=== PATIENT | male | born 1985 | race Caucasian/White ===

== ENCOUNTER 2016-06-22 03:23 | Emergency (ER) | payer BC, SELFPAY ==
[2016-06-22] MEDS ORDERED: LIDOCAINE W/EPINEPHRINE 1% 20ML VIAL As Ordered ONE (03:49)
--- NOTE | 2016-06-22 04:24 | EDDOCDS ---
Physician Documentation [facility] Name: Mukund Michelle Age: 30 yrs Sex: Male : 1985 Arrival Date: 06/22/2016 Time: 03:23 Bed 9 Private MD: Disposition: 06/22/16 04:09 Discharged to Home/Self Care. Impression: Dental caries on smooth surface. - Condition is Stable. - Prescriptions for Clindamycin HCl 150 mg Oral Capsule - take 1 capsule by ORAL route 4 times per day for 10 days; 40 capsule. - Medication Reconciliation, Local Pharmacy Hours, Work Release Form - 1 day form. - Follow up: Private Physician; When: Call to arrange an appointment; Reason: Recheck today's complaints. - Problem is an ongoing problem. - Symptoms have improved. Historical: - Allergies: No known drug Allergies; - Home Meds: 1. none - PMHx: none; - PSHx: none; - Social history: Smoking status: Patient uses tobacco products, light tobacco smoker. No barriers to communication noted, The patient speaks fluent Wolof, Speaks appropriately for age. - Family history: Not pertinent. - : The pt / caregiver states he / she is not on anticoagulants. Home medication list is obtained from the patient. - Exposure Risk Screening:: None identified. Vital Signs: 06/22 03:30 BP 173 / 98; Pulse 92; Resp 18; Temp 98.2; Pulse Ox 98% on R/A; Weight 86.18 kg / nn1 189.99 lbs; Height 6 ft. 1 in. (185.42 cm); Pain 7/10; 03:30 Body Mass Index 25.07 (86.18 kg, 185.42 cm) nn1 Procedures: 04:08 Dental block: Location: periapical block, Medication: Lidocaine 1% with epinephrine, cs11 Effect: the patient has resolution of the pain, the patient tolerated the procedure well. MDM: 04:05 Financial registration complete. [facility] Signatures: Josr Steiner DO DO cs11 Dedra De León [facility] Georgiana FergusonRN RN nn1 Marleen Aleman RN RN kas2 MTDD
--- NOTE | 2016-06-22 04:24 | EDDOCDS ---
Nurse's Notes [facility] Name: Mukund Michelle Age: 30 yrs Sex: Male : 1985 Arrival Date: 06/22/2016 Time: 03:23 Bed 9 Private MD: Diagnosis: Dental caries on smooth surface Presentation: 06/22 03:28 Presenting complaint: Patient states: believes he has infection in left side of mouth. nn1 Pain started a couple of days ago. Adult Sepsis Screening: The patient does not have new or worsening altered mentation. Patient's respiratory rate is less than 22. Systolic blood pressure is greater than 100. Patient has a qSOFA score of 0- Negative Sepsis Screen. Suicide/Homicide risk assessment- the patient denies having any suicidal and/or homicidal ideations and does not present with any other emotional, behavioral or mental health complaints. Status: Patient is not a tax services manager or dependent. Transition of care: patient was not received from another setting of care. 03:28 Acuity: CACHORRO Level 4 nn1 03:28 Method Of Arrival: Walkin/Carried/Asstd nn1 Triage Assessment: 03:31 General: Appears in no apparent distress. Pain: Location: mouth Pain currently is 7 out nn1 of 10 on a pain scale. HIV screening NA for this visit Offered previously. The patient is triaged at the bedside. See Assessment in Nurses Notes section of ED record. Neurological: Level of Consciousness is awake, alert, obeys commands, Oriented to person, place, time. EENT: Respiratory: Airway is patent Respiratory effort is even, unlabored, Respiratory pattern is regular, symmetrical. 03:38 EENT: Poor dentition noted. nn1 Historical: - Allergies: No known drug Allergies; - Home Meds: 1. none - PMHx: none; - PSHx: none; - Social history: Smoking status: Patient uses tobacco products, light tobacco smoker. No barriers to communication noted, The patient speaks fluent Lao, Speaks appropriately for age. - Family history: Not pertinent. - : The pt / caregiver states he / she is not on anticoagulants. Home medication list is obtained from the patient. - Exposure Risk Screening:: None identified. Screenin:49 Screening information is obtained from the patient. Fall risk: No risks identified. kas2 Assistance ADL's: requires no assistance with activities of daily living. Abuse/DV Screen: The patient / caregiver reports he/she is: not in a situation that causes fear, pain or injury. Nutritional screening: No deficits noted. Advance Directives: Currently, there is no health care proxy. There is no active DNR order. There is no living will. There is no Power of Sewing Machine Attachment Tester. home support is adequate. Assessment: 03:47 General: Appears in no apparent distress, uncomfortable, unkempt, Behavior is kas2 appropriate for age, cooperative. Pain: Location: mouth Pain currently is 10 out of 10 on a pain scale. Neurological: Level of Consciousness is awake, alert, Oriented to person, place, time. Cardiovascular: Capillary refill < 3 seconds Heart tones present Rhythm is regular. Respiratory: No deficits noted. Airway is patent Respiratory effort is even, unlabored, Respiratory pattern is regular, symmetrical, Breath sounds are clear bilaterally. Derm: Skin is intact, is healthy with good turgor, Skin is dry, Skin is pink, warm & dry. Skin temperature is warm. 04:09 General:. kas2 Vital Signs: 03:30 BP 173 / 98; Pulse 92; Resp 18; Temp 98.2; Pulse Ox 98% on R/A; Weight 86.18 kg; Height nn1 6 ft. 1 in. (185.42 cm); Pain 7/10; 03:30 Body Mass Index 25.07 (86.18 kg, 185.42 cm) nn1 Vitals: 03:23 Log In Time: June 22, 2016 at 03:23. nn1 ED Course: 03:24 Patient visited by Rachel Abdi. gjb 03:24 Patient moved to Waiting gjb 03:27 Patient moved to Triage 1 nn1 03:28 Triage Initiated nn1 03:32 Marleen Aleman RN is Primary Nurse. nn1 03:32 Patient moved to 9 nn1 03:36 Patient visited by Marleen Aleman RN. kas2 03:46 Josr Steiner DO is Attending Physician. cs11 03:46 Patient visited by Josr Steiner DO. cs11 03:50 Patient visited by Marleen Aleman RN. kas2 04:12 Patient visited by Marleen Aleman RN. kas2 04:24 The patient / caregiver is instructed regarding the plan of care and ED course. kas2 04:24 No IV's were initiated during this patient's visit. No procedures done that require kas2 assistance. Order Results: There are currently no results for this order. Outcome: 04:09 Discharge ordered by Provider. cs11 04:23 Discharge Assessment: patient administered narcotics - no. The following High Risk kas2 Discharge criteria are identified: None. Discharged to home ambulatory. Condition: good Condition: stable Condition: improved. No special radiology studies were completed. Property :Personal belongings accompany Pt. 04:24 Patient left the ED. kas2 Signatures: Josr Steiner DO DO cs11 Georgiana Ferguson,RN RN nn1 Rachel Abdi KimRN RN kas2 MTDD
--- NOTE | 2016-06-24 05:24 | EDDOCDS ---
Physician Documentation [facility] Name: Mukund Michelle Age: 30 yrs Sex: Male : 1985 Arrival Date: 06/22/2016 Time: 03:23 Bed 9 Private MD: Disposition: 06/22/16 04:09 Discharged to Home/Self Care. Impression: Dental caries on smooth surface. - Condition is Stable. - Prescriptions for Clindamycin HCl 150 mg Oral Capsule - take 1 capsule by ORAL route 4 times per day for 10 days; 40 capsule. - Medication Reconciliation, Local Pharmacy Hours, Work Release Form - 1 day form. - Follow up: Private Physician; When: Call to arrange an appointment; Reason: Recheck today's complaints. - Problem is an ongoing problem. - Symptoms have improved. Historical: - Allergies: No known drug Allergies; - Home Meds: 1. none - PMHx: none; - PSHx: none; - Social history: Smoking status: Patient uses tobacco products, light tobacco smoker. No barriers to communication noted, The patient speaks fluent French, Speaks appropriately for age. - Family history: Not pertinent. - : The pt / caregiver states he / she is not on anticoagulants. Home medication list is obtained from the patient. - Exposure Risk Screening:: None identified. Vital Signs: 06/22 03:30 BP 173 / 98; Pulse 92; Resp 18; Temp 98.2; Pulse Ox 98% on R/A; Weight 86.18 kg / nn1 189.99 lbs; Height 6 ft. 1 in. (185.42 cm); Pain 7/10; 03:30 Body Mass Index 25.07 (86.18 kg, 185.42 cm) nn1 Procedures: 04:08 Dental block: Location: periapical block, Medication: Lidocaine 1% with epinephrine, cs11 Effect: the patient has resolution of the pain, the patient tolerated the procedure well. MDM: 04:05 Financial registration complete. [facility] 04:29 [facility] Payment Agreement was scanned into garbs and attached to record. [facility] 06/23 09:56 T-Sheet-- Draft Copy was scanned into garbs and attached to record. gb Signatures: Margaret Villatoro, Raad Reg Josr Otero DO DO cs11 Dedra De León Georgiana Wong RN RN nn1 Marleen AlemanRN RN kas2 The chart was reviewed and I authenticate all verbal orders and agree with the evaluation and treatment provided.Attachments: 06/22 04:29 [facility] Payment Agreement [facility] 06/23 09:56 T-Sheet-- Draft Copy gb Chart Complete MTDD
--- NOTE | 2016-06-24 05:24 | EDDOCDS ---
Nurse's Notes [facility] Name: Mukund Michelle Age: 30 yrs Sex: Male : 1985 Arrival Date: 06/22/2016 Time: 03:23 Bed 9 Private MD: Diagnosis: Dental caries on smooth surface Presentation: 06/22 03:28 Presenting complaint: Patient states: believes he has infection in left side of mouth. nn1 Pain started a couple of days ago. Adult Sepsis Screening: The patient does not have new or worsening altered mentation. Patient's respiratory rate is less than 22. Systolic blood pressure is greater than 100. Patient has a qSOFA score of 0- Negative Sepsis Screen. Suicide/Homicide risk assessment- the patient denies having any suicidal and/or homicidal ideations and does not present with any other emotional, behavioral or mental health complaints. Status: Patient is not a food service lead or dependent. Transition of care: patient was not received from another setting of care. 03:28 Acuity: CACHORRO Level 4 nn1 03:28 Method Of Arrival: Walkin/Carried/Asstd nn1 Triage Assessment: 03:31 General: Appears in no apparent distress. Pain: Location: mouth Pain currently is 7 out nn1 of 10 on a pain scale. HIV screening NA for this visit Offered previously. The patient is triaged at the bedside. See Assessment in Nurses Notes section of ED record. Neurological: Level of Consciousness is awake, alert, obeys commands, Oriented to person, place, time. EENT: Respiratory: Airway is patent Respiratory effort is even, unlabored, Respiratory pattern is regular, symmetrical. 03:38 EENT: Poor dentition noted. nn1 Historical: - Allergies: No known drug Allergies; - Home Meds: 1. none - PMHx: none; - PSHx: none; - Social history: Smoking status: Patient uses tobacco products, light tobacco smoker. No barriers to communication noted, The patient speaks fluent Amharic, Speaks appropriately for age. - Family history: Not pertinent. - : The pt / caregiver states he / she is not on anticoagulants. Home medication list is obtained from the patient. - Exposure Risk Screening:: None identified. Screenin:49 Screening information is obtained from the patient. Fall risk: No risks identified. kas2 Assistance ADL's: requires no assistance with activities of daily living. Abuse/DV Screen: The patient / caregiver reports he/she is: not in a situation that causes fear, pain or injury. Nutritional screening: No deficits noted. Advance Directives: Currently, there is no health care proxy. There is no active DNR order. There is no living will. There is no Power of Nuclear Fuels Research Engineer. home support is adequate. Assessment: 03:47 General: Appears in no apparent distress, uncomfortable, unkempt, Behavior is kas2 appropriate for age, cooperative. Pain: Location: mouth Pain currently is 10 out of 10 on a pain scale. Neurological: Level of Consciousness is awake, alert, Oriented to person, place, time. Cardiovascular: Capillary refill < 3 seconds Heart tones present Rhythm is regular. Respiratory: No deficits noted. Airway is patent Respiratory effort is even, unlabored, Respiratory pattern is regular, symmetrical, Breath sounds are clear bilaterally. Derm: Skin is intact, is healthy with good turgor, Skin is dry, Skin is pink, warm & dry. Skin temperature is warm. 04:09 General:. kas2 Vital Signs: 03:30 BP 173 / 98; Pulse 92; Resp 18; Temp 98.2; Pulse Ox 98% on R/A; Weight 86.18 kg; Height nn1 6 ft. 1 in. (185.42 cm); Pain 7/10; 03:30 Body Mass Index 25.07 (86.18 kg, 185.42 cm) nn1 Vitals: 03:23 Log In Time: June 22, 2016 at 03:23. nn1 ED Course: 03:24 Patient visited by Rachel Abdi. gjb 03:24 Patient moved to Waiting gjb 03:27 Patient moved to Triage 1 nn1 03:28 Triage Initiated nn1 03:32 Marleen Aleman RN is Primary Nurse. nn1 03:32 Patient moved to 9 nn1 03:36 Patient visited by Marleen Aleman RN. kas2 03:46 Josr Steiner DO is Attending Physician. cs11 03:46 Patient visited by Josr Steiner DO. cs11 03:50 Patient visited by Marleen Aleman RN. kas2 04:12 Patient visited by Marleen Aleman RN. kas2 04:24 The patient / caregiver is instructed regarding the plan of care and ED course. kas2 04:24 No IV's were initiated during this patient's visit. No procedures done that require kas2 assistance. 04:29 [facility] Payment Agreement was scanned into [employer] and attached to record. [facility] 06/23 09:56 T-Sheet-- Draft Copy was scanned into [employer] and attached to record. Order Results: There are currently no results for this order. Outcome: 06/22 04:09 Discharge ordered by Provider. 11 04:23 Discharge Assessment: patient administered narcotics - no. The following High Risk kas2 Discharge criteria are identified: None. Discharged to home ambulatory. Condition: good Condition: stable Condition: improved. No special radiology studies were completed. Property :Personal belongings accompany Pt. 04:24 Patient left the ED. [facility] Signatures: Margaret Villatoro, Reg Reg Josr Otero, DO cs11 Dedra De León [facility] Georgiana Ferguson,RN RN nn1 Rachel Abdi KimRN RN kas2 Chart Complete NAHOMI
--- NOTE | 2016-06-24 05:24 | EDDOCDS ---
Physician Documentation [facility] Name: Mukund Michelle Age: 30 yrs Sex: Male : 1985 Arrival Date: 06/22/2016 Time: 03:23 Bed 9 Private MD: Disposition: 06/22/16 04:09 Discharged to Home/Self Care. Impression: Dental caries on smooth surface. - Condition is Stable. - Prescriptions for Clindamycin HCl 150 mg Oral Capsule - take 1 capsule by ORAL route 4 times per day for 10 days; 40 capsule. - Medication Reconciliation, Local Pharmacy Hours, Work Release Form - 1 day form. - Follow up: Private Physician; When: Call to arrange an appointment; Reason: Recheck today's complaints. - Problem is an ongoing problem. - Symptoms have improved. Historical: - Allergies: No known drug Allergies; - Home Meds: 1. none - PMHx: none; - PSHx: none; - Social history: Smoking status: Patient uses tobacco products, light tobacco smoker. No barriers to communication noted, The patient speaks fluent Polish, Speaks appropriately for age. - Family history: Not pertinent. - : The pt / caregiver states he / she is not on anticoagulants. Home medication list is obtained from the patient. - Exposure Risk Screening:: None identified. Vital Signs: 06/22 03:30 BP 173 / 98; Pulse 92; Resp 18; Temp 98.2; Pulse Ox 98% on R/A; Weight 86.18 kg / nn1 189.99 lbs; Height 6 ft. 1 in. (185.42 cm); Pain 7/10; 03:30 Body Mass Index 25.07 (86.18 kg, 185.42 cm) nn1 Procedures: 04:08 Dental block: Location: periapical block, Medication: Lidocaine 1% with epinephrine, cs11 Effect: the patient has resolution of the pain, the patient tolerated the procedure well. MDM: 04:05 Financial registration complete. [facility] 04:29 [facility] Payment Agreement was scanned into [employer] and attached to record. [facility] 06/23 09:56 T-Sheet-- Draft Copy was scanned into [employer] and attached to record. gb Signatures: Margaret Villatoro, Raad Reg Josr Otero DO DO cs11 Dedra De León Georgiana Wong RN RN nn1 Marleen AlemanRN RN kas2 The chart was reviewed and I authenticate all verbal orders and agree with the evaluation and treatment provided.Attachments: 06/22 04:29 [facility] Payment Agreement [facility] 06/23 09:56 T-Sheet-- Draft Copy gb Chart Complete MTDD
== END 2016-06-22 04:24 | disposition home or self-care (01) ==
LOC: M ED 03:23
DX: K02.9 Dental caries, unspecified (principal); K08.89 Other specified disorders of teeth and supporting structures; Z72.0 Tobacco use